=== PATIENT | male | born 1945 | race Caucasian/White ===

== ENCOUNTER 2018-01-27 13:50 | Emergency (ER) | payer OTHER | END 2018-01-27 17:47 | disposition home or self-care (01) | LOC: E/R 13:50 | DX: T54.3X1A Toxic effect of corrosive alkalis and alkali-like substances, accidental (unintentional), initial encounter (principal) | CPT/HCPCS: 99282 ==

== ENCOUNTER 2018-12-16 10:49 | Emergency (ER) | payer BC, MEDICAID, OTHER | END 2018-12-16 12:59 | disposition home or self-care (01) | LOC: FTE 10:49 | DX: S51.811A Laceration without foreign body of right forearm, initial encounter (principal); S50.01XA Contusion of right elbow, initial encounter; I10 Essential (primary) hypertension; W18.30XA Fall on same level, unspecified, initial encounter; Y92.512 Supermarket, store or market as the place of occurrence of the external cause | CPT/HCPCS: 29105; 73080-RT; 99283-25 ==